=== PATIENT | female | born 1960 | race Caucasian/White ===

== ENCOUNTER 2022-08-24 06:40 | Day surgery (SDC) | payer OTHER ==
[~2022-08-24] VITALS: Ht 151.1 cm; Wt 71.7 kg
[~2022-08-24 06:40] MED LIST: COZAAR25 MG PO; FOSAMAX5 MG PO; HYZAAR 100-121 UDTAB PO; NEXIUM 24HR20 MG PO; OSTERA TABLET1 EACH PO; ZANTAC300 MG PO; [UNRECOGNIZED DRUG - OTHER] TP
== END 2022-08-24 15:30 | disposition home or self-care (01) ==
LOC: CIR.AMB 06:40
PROVIDERS: ATTEND Orthopaedic Surgery Hand Surgery
DX: M65.351 Trigger finger, right little finger (principal); Z20.822 Contact with and (suspected) exposure to COVID-19; Z88.0 Allergy status to penicillin; Z88.6 Allergy status to analgesic agent; Z88.8 Allergy status to other drugs, medicaments and biological substances; I10 Essential (primary) hypertension; Z86.16 Personal history of COVID-19; J45.909 Unspecified asthma, uncomplicated; Z87.891 Personal history of nicotine dependence